=== PATIENT | male | born 1985 | race American Indian/Alaskan Native ===

== ENCOUNTER 2018-08-02 22:07 | Emergency (ER) | payer SELFPAY ==
[2018-08-02 22:13] VITALS: BP 113/83
[2018-08-02] MEDS ORDERED: PROVENTIL IH ONE (22:16)
[2018-08-02] MEDS ORDERED: SOLU-Medrol IM ONE (22:55)
--- NOTE | 2018-08-02 23:54 | XRay Report ---
FINAL REPORT PROCEDURE: Chest. TECHNIQUE: PA and lateral views. HISTORY: Cough and wheezing. COMPARISON: No prior studies are available for comparison. FINDINGS: The heart and mediastinum appear normal. The lungs are clear and well expanded. There are no pleural effusions. The soft tissues and regional skeleton are unremarkable. IMPRESSION: Normal study.
== END 2018-08-03 00:21 | disposition left against medical advice (07) ==
LOC: ED 22:07
DX: J45.909 Unspecified asthma, uncomplicated (principal); Z53.21 Procedure and treatment not carried out due to patient leaving prior to being seen by health care provider
CPT/HCPCS: 71046; J2930